=== PATIENT | female | born 1950 | race Caucasian/White ===

== ENCOUNTER → 2018-12-16 | Outpatient (CLI) | payer MEDICARE ==
[~2018-12-16] MED LIST: ACET325T12 PO; CITA20TA9 PO; CYAN25006 SL; DULO30CA43 PO; DULO60CA7 PO; GABA300C10 PO; HYDR25TA9 PO; MULT1TAB52 PO; TRAM50TA PO
[2018-12-16 14:36] LABS: BASOPHIL # 0.1 10^3/uL (0.0-0.1); BASOPHIL % 0.6 % (0.0-0.2); EOSINOPHIL # 0.3 10^3/uL (0.0-0.2); EOSINOPHIL % 2.6 % (0.0-5.0); LYMPHOCYTES # 2.9 10^3/uL (1.0-4.8); LYMPHOCYTES % 29.5 % (24.0-44.0); MEAN CELL HGB 31.1 pg (26-34); MEAN CELL HGB CONCENTRATION 32.7 g/dL (33-37); MEAN CORP VOLUME 95.2 fL (78-100); MEAN PLATELET VOLUME 9.5 fL (7.8-11.0); MONOCYTES # 0.8 10^3/uL (0.3-0.8); MONOCYTES % 8.4 % (5.0-12.0); NEUTROPHIL # 5.8 10^3/uL (1.8-7.7); NEUTROPHILS % 58.7 % (41.0-85.0); RED CELL DISTRIBUTION WIDTH 13.7 % (11.5-14.5); WHITE BLOOD CELL 9.9 10^3/uL (4.5-11.0)
--- NOTE | 2018-12-16 14:53 | DIREP ---
PROCEDURE:XRAY FOOT MIN 3 VWS-RT COMPARISON:None. INDICATIONS:M10.9 GOUT FINDINGS: BONES:No punched out erosions are seen involving the 1st MTP joints or involving the head of the 1st metatarsal. Mild hallux valgus. 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 JOINTS:Normal. SOFT TISSUES:Significant soft tissue swelling along the dorsum of the foot. Soft tissue calcifications seen along the posterior aspects of the ankle as seen on the lateral view. OTHER:No additional findings. CONCLUSION:Hallux valgus. No erosive changes seen in the 1st MTP joint to suggest gout. Soft tissue swelling noted with a large calcaneal spur. No erosive arthritis is seen. Dictated by: Tarik Rosado MD on 12/16/2018 at 02:50 PM
[2018-12-16 15:05] LABS: CALCIUM 8.9 mg/dL (8.4-10.5); CARBON DIOXIDE 30.6 mmol/L (20.0-32)
== END | disposition home or self-care (01) ==
LOC: LAB 14:21
PROVIDERS: ATTEND Nurse Practitioner Family
DX: M19.071 Primary osteoarthritis, right ankle and foot (principal); M20.11 Hallux valgus (acquired), right foot; M10.9 Gout, unspecified
CPT/HCPCS: 36415; 80053; 84550; 85025; 73630-RT